=== PATIENT | male | born 1965 | race African-American/Black ===

== ENCOUNTER 2023-06-04 20:53 | Emergency (ER) | payer OTHER ==
[~2023-06-04] VITALS: Ht 185.4 cm; Wt 110.0 kg
[2023-06-04 21:07] VITALS: TEMP 99.1
[2023-06-04 21:35] VITALS: BP 147/96; PULSE 96; RESP 18
[2023-06-04] MEDS ORDERED: CLIN300C58 PO (21:49)
== END 2023-06-04 22:18 | disposition home or self-care (01) ==
LOC: EMS 20:54
DX: K04.7 Periapical abscess without sinus (principal); K13.79 Other lesions of oral mucosa; I10 Essential (primary) hypertension
CPT/HCPCS: 99283; Z7502

== ENCOUNTER 2025-10-04 00:55 | Emergency (ER) | payer OTHER ==
[~2025-10-04 00:55] MED LIST: CLIN300C58 PO
== END 2025-10-04 02:08 | disposition left against medical advice (07) ==
LOC: EMS 00:58
DX: M25.519 Pain in unspecified shoulder (principal); Z53.21 Procedure and treatment not carried out due to patient leaving prior to being seen by health care provider